=== PATIENT | male | born 1960 | race Caucasian/White ===

== ENCOUNTER → 2016-08-16 | Outpatient (CLI) | payer BC ==
[~2016-08-16] MED LIST: HYDR-5688 PO
--- NOTE | 2016-08-16 09:33 | DIAGNOSTIC IMAGING REPORT ---
RIGHT KNEE MRI HISTORY: Right knee pain. COMPARISON STUDY: None. TECHNIQUE: Multiplanar multisequence MRI of the right knee was performed according to standard department protocol without the use of contrast. FINDINGS: Menisci: The lateral meniscus is intact. There is a vertical tear through the posterior horn of the medial meniscus. Ligaments: The anterior and posterior cruciate ligaments are intact. The medial and lateral collateral ligaments are normal in appearance. Extensor mechanism: The quadriceps tendon and patellar ligament are intact. Articular cartilage and bone: No fracture or dislocation within the knee. Normal marrow signal intensity. Greater than 50% cartilage thinning within the median ridge of the patella and medial femoral condyle. There is also focal cartilage fissure within the medial femoral condyle. Joint effusion: None. Soft tissues: Small popliteal cyst. Trace edema along the medial gastrocnemius muscle which may represent partial rupture of the popliteal cyst. Small ganglion posterior to the PCL. IMPRESSION: 1. A tear through the posterior horn of the medial meniscus. 2. Moderate osteoarthritis at the patellofemoral and medial compartments of the knee as described above. 3. Small popliteal cyst which may be partially ruptured. Electronically signed by: Lee Leonardo M.D. 08/16/2016 9:32 AM Dictated Date/Time: 08/16/2016 9:27 AM
== END | disposition home or self-care (01) ==
LOC: C.MRI 07:50
DX: S83.241A Other tear of medial meniscus, current injury, right knee, initial encounter (principal); X58.XXXA Exposure to other specified factors, initial encounter; M25.461 Effusion, right knee; M71.21 Synovial cyst of popliteal space [Baker], right knee

== ENCOUNTER → 2016-08-24 | Outpatient (CLI) | payer BC | END | disposition home or self-care (01) | LOC: C.CPL 12:07 | PROVIDERS: ATTEND Orthopaedic Surgery | DX: S83.241A Other tear of medial meniscus, current injury, right knee, initial encounter (principal); X58.XXXA Exposure to other specified factors, initial encounter ==

== ENCOUNTER → 2016-09-05 | Day surgery (SDC) | payer BC ==
[2016-08-29 08:19] VITALS: Ht 190.5 cm; Wt 104.5 kg
[~2016-09-05] VITALS: Ht 190.5 cm; Wt 104.5 kg
[~2016-09-05] MED LIST changes: +ATROPINE SULFATE 0.1 MG/ML 5ML SYR IV PRN; +BUPIVACAINE 0.5 % 5 MG/1 ML PF 10ML VIAL ONE; +CEFAZOLIN 2000 MG/60 ML D5W IV SCH; +DEXAMETHASONE SOD INJ 4 MG/ML VIAL ONE; +EpINEphrine INJ 1MG/ML AMP 1 MG/ML AMP ONE; +FENTANYL CITRATE INJ 50 MCG/1 ML 2 ML VIAL IV PRN; +FENTANYL CITRATE INJ 50 MCG/1 ML 2 ML VIAL ONE; +KETOROLAC TROMETHAMINE 30 MG/ML VIAL IV. PRN; +KETOROLAC TROMETHAMINE 30 MG/ML VIAL ONE; +LABETALOL HCL IV 5 MG/ML 20ML IV PRN; +LACTATED RINGER'S 1000ML 1,000 ML IV SCH; +LIDOCAINE HCL 2% 2 ML VIAL (20MG/ML) ONE; +MIDAZOLAM HCL 1 MG/ML 2ML VIAL ONE; +ONDANSETRON INJ 2 MG/ML 2 ML VIAL IV PRN; +ONDANSETRON INJ 2 MG/ML 2 ML VIAL ONE; +OXYCODONE/ACETAMINOPHEN 5-325 TAB PO PRN; +PROPOFOL IV EMULSION 10 MG/ML 20 ML VIAL IV ONE; +ROPIVACAINE 0.5% 5 MG/ML 30 ML VIAL ONE; +SODIUM CHLORIDE 0.9% 1000ML 1,000 ML IV SCH
--- NOTE | 2016-09-05 09:17 | History & Physical Bridge - [place] ---
H&P Re-Evaluation Bridge Note: I have examined the patient, reviewed the History & Physical and in the interval since the performance of the History & Physical I have noted the following changes of clinical significance: No changes noted
--- NOTE | 2016-09-05 10:25 | [facility] Post Operative Brief Note ---
Immediate Operative Summary Operative Date Sep 05, 2016. Pre-Operative Diagnosis Right Knee Medial Meniscal Tear Post-Operative Diagnosis Same, DJD TROCHLEAR GROVE GRADE IV Procedure(s) Performed Right Knee Arthroscopy, Partial Medial Meniscectomy Surgeon Dr. Gamble Order Management Specialist Surgeon(s) Leti Hyman PA-C Estimated Blood Loss None Findings ABOVE Specimens None Anesthesia LMA Complication(s) None Disposition Recovery Room / PACU
--- NOTE | 2016-09-05 10:34 | Discharge Instructions-SurgCtr ---
Discharge Instructions Date of Service Sep 05, 2016. Visit Reason for Visit: Right Knee Medial Meniscus Tear Discharge Discharge Diagnosis / Problem: SAME ABOVE Discharge Goals Goal(s): Decrease discomfort, Improve function Activity Recommendations Activity Limitations: as noted below Lifting Limitations: gradually increase as tolerated Exercise/Sports Limitations: until after follow-up appointment Shower/Bathe: tomorrow Weightbearing Status: Right weightbearing (as tolerated) Anesthesia . Post Anesthesia Instructions: If you have had General Anesthesia or IV Sedation: * Do not drive today. * Resume driving when surgeon permits. * Do not make important decisions or sign legal documents today. * Call surgeon for: 1. Temperature elevations greater than 101 degrees F. 2. Uncontrollable pain. 3. Excessive bleeding. 4. Persistent nausea and vomiting. 5. Medication intolerance (nausea, vomiting or rash). * For nausea and vomiting use only clear liquids such as: tea, soda, bouillon until nausea subsides, then gradually increase diet as tolerated. * If you have any concerns or questions, call your surgeon's office. If physician is unavailable and it is an emergency, call 911 or go to the nearest emergency room. . Instructions / Follow-Up Instructions / Follow-Up MEDICATIONS: * Resume previous medications unless instructed otherwise by your surgeon. * Always take pain medication on a full stomach or with food to avoid upset stomach. * Do not drink alcohol or drive while taking narcotics. * Ibuprofen or Tylenol may be taken if narcotic not needed. SPECIAL CARE INSTRUCTIONS: __ None _X_ Keep extremity elevated and iced x 48 hours; apply ice 20-30 minutes 8-10 times/day. May remove at night. __ Crutches __ May discard when able __ Brace/Post-op shoe __ 24 hrs/day __ Remove at night _X_ Dressing __ Maintain until seen in office, may shower with plastic over site _X_ Remove dressings in 24-48 hours and then may shower _X_ Cover incisions with band-aids after showering __ Do not remove steri-strips Call physician if chills or temperature rises above 102 degrees or pain unrelieved by prescribed pain medications. Office [phone] Diet Recommendations Home Diet: resume previous diet Procedures Procedures Performed: Right Knee Arthroscopy, Partial Medial Meniscectomy, Chondroplasty of Trochlear Groove Pending Studies Studies pending at discharge: no Medical Emergencies . Who to Call and When: Medical Emergencies: If at any time you feel your situation is an emergency, please call 911 immediately. . Non-Emergent Contact Non-Emergency issues call your: Primary Care Provider . . "Provider Documentation" section prepared by Ajay Hyman.
--- NOTE | 2016-09-05 10:58 | OPERATIVE REPORT ---
DATE OF OPERATION: 09/05/2016 PREOPERATIVE DIAGNOSIS: Medial meniscus tear, right knee. POSTOPERATIVE DIAGNOSES: 1. Posterior horn medial meniscus flap tear. 2. 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 3. Synovitis patellofemoral joint knee. PROCEDURE: 1. Right knee arthroscopy. 2. Partial medial meniscectomy. 3. Chondroplasty trochlear groove. 4. Synovectomy patellofemoral joint. SURGEON: Dr. Gamble. REPAIRER CYLINDER HEADS: Ajay Hyman PA-C. ANESTHESIOLOGIST: Dr. Venegas. ANESTHESIA: LMA general. DRAINS: None. COMPLICATIONS: None. CONDITION: The patient tolerated the procedure well and returned to the recovery room in apparent satisfactory condition. INDICATIONS FOR SURGERY: Pepe is a 56-year-old male who has had increasing pain and discomfort in his right knee and history, physical exam and MRI are consistent with medial meniscus tear. Went over treatment options and elected to go ahead and proceed with arthroscopy. The procedure, expected outcomes and side effects were all explained in detail. PROCEDURE: The patient was taken to the operating room at which time she was placed supine on the operating table and put to sleep by anesthesia department. Ligamentous peoples the knee was stable. He had a slight varus alignment to his knee. He had a mild effusion also. I went ahead and prepped and draped in usual sterile fashion. We began arthroscopic examination in the anteromedial and anterolateral portals. Immediately we found a flap tear of the posterior horn of the medial meniscus. We came in with upbiting scissors and full radius resector and trimmed it back to a stable rim. We found synovitis in the trochlear groove. This was shaved out. We found grade 4 changes trochlear groove distal femur. Chondroplasty was performed here. Lateral compartment was in pretty good shape. The patellofemoral joint had a lot of synovitis and this was shaved out. The underneath surface of the patella did not have much damage as the trochlear groove itself did. The knee then was copiously irrigated. All cannulas were removed. Portals closed with 4-0 nylon sutures. Ropivacaine 30 mL, 10 mg of Toradol, 1 mL epinephrine was placed in the knee joint. Placed a sterile dressing of Xeroform, 4 x 4, ABD, Sof-Rol, and Vahid bandage and returned back to recovery room in apparent satisfactory condition. SURGICAL FINDINGS: Included: 1. Flap tear posterior horn medial meniscus. 2. Grade 4 changes of the trochlear groove patellofemoral joint with synovitis and effusion. I attest to the content of the Intraoperative Record and any orders documented therein. Any exceptio ns are noted below.
[2016-09-05 11:15] VITALS: TEMP 36.5
--- NOTE | 2016-09-05 11:17 | Anesthesia Progress Nt - [facility] ---
Anesthesia Post Op Note Date & Time Sep 05, 2016 at 11:17 Vital Signs Pain Intensity: 2 Vital Signs Past 12 Hours Date Time Temp Pulse Resp B/P Pulse Ox O2 Delivery O2 Flow Rate FiO2 09/05/16 11:02 55 16 09/05/16 11:02 57 16 96 09/05/16 11:00 36.6 54 12 148/90 97 Room Air 09/05/16 11:00 148/90 09/05/16 10:57 54 20 09/05/16 10:57 54 20 97 09/05/16 10:55 150/95 09/05/16 10:52 57 17 09/05/16 10:52 57 17 97 09/05/16 10:50 145/94 09/05/16 10:47 54 9 09/05/16 10:47 55 9 100 09/05/16 10:45 148/97 09/05/16 10:42 55 12 09/05/16 10:42 54 12 100 09/05/16 10:40 149/101 09/05/16 10:37 61 13 09/05/16 10:37 62 13 100 09/05/16 10:35 132/94 09/05/16 10:33 151/102 09/05/16 10:32 37.0 54 12 151/102 99 Diffusion Mask 6 09/05/16 09:06 36.7 57 20 119/79 97 Room Air Notes Mental Status: alert / awake / arousable, participated in evaluation Pt Amnestic to Procedure: Yes Nausea / Vomiting: adequately controlled Pain: adequately controlled Airway Patency, RR, SpO2: stable & adequate BP & HR: stable & adequate Hydration State: stable & adequate Anesthetic Complications: no major complications apparent
[2016-09-05 11:41] VITALS: BP 149/87; O2SAT 98
== END | disposition home or self-care (01) ==
LOC: X.SURG 08:59
PROVIDERS: ATTEND Orthopaedic Surgery
DX: M23.221 Derangement of posterior horn of medial meniscus due to old tear or injury, right knee (principal); M65.9 Synovitis and tenosynovitis, unspecified